=== PATIENT | female | born 1995 | race Two or more races ===

== ENCOUNTER 2022-07-09 14:44 | Emergency (ER) | payer OTHER ==
[~2022-07-09] VITALS: Ht 157.5 cm; Wt 71.2 kg
[2022-07-09] MEDS ORDERED: SYNTHROID112 MCG PO (14:53)
== END 2022-07-09 18:04 | disposition home or self-care (01) ==
LOC: ER 14:44
DX: R51.9 Headache, unspecified (principal)

== ENCOUNTER 2023-01-24 12:16 | Inpatient (IN) | payer OTHER ==
[~2023-01-24] VITALS: Ht 157.5 cm; Wt 82.1 kg
[~2023-01-24 12:16] MED LIST: SYNTHROID112 MCG PO
[2023-01-24] MEDS ORDERED: SYNTHROID125 MCG PO (14:19)
[2023-01-24] MEDS ORDERED: PRENATAL CAPLE1 EAC1 PO (14:20)
[2023-01-24] MEDS ORDERED: INTEGRA F CAPS1 EACH PO (14:21)
== END 2023-01-25 09:41 | disposition home or self-care (01) | DRG 833 ==
LOC: LDR 12:16 → OB/GYN 17:18
PROVIDERS: ADMIT Obstetrics & Gynecology Gynecology; ATTEND Obstetrics & Gynecology Gynecology
PROC: 4A1HXCZ Monitoring of Products of Conception, Cardiac Rate, External Approach (ICD-10-PCS; principal; 2023-01-24)
DX: O26.893 Other specified pregnancy related conditions, third trimester (principal); R51.9 Headache, unspecified; R42 Dizziness and giddiness; Z3A.36 36 weeks gestation of pregnancy; Z20.822 Contact with and (suspected) exposure to COVID-19

== ENCOUNTER 2023-02-10 14:34 | Outpatient (CLI) | payer OTHER ==
[~2023-02-10 14:34] MED LIST changes: +INTEGRA F CAPS1 EACH PO; +PRENATAL CAPLE1 EAC1 PO; +SYNTHROID125 MCG PO
== END 2023-02-10 14:50 | disposition home or self-care (01) ==
LOC: NST 14:34
PROVIDERS: ATTEND Obstetrics & Gynecology
DX: Z34.83 Encounter for supervision of other normal pregnancy, third trimester (principal)

== ENCOUNTER 2023-02-12 14:37 | Inpatient (IN) | payer OTHER ==
[~2023-02-12] VITALS: Ht 157.5 cm; Wt 82.1 kg
== END 2023-03-03 11:47 | disposition home or self-care (01) | DRG 807 ==
LOC: OB/GYN → LDR 03-01 07:32 → OB/GYN 03-01 17:27
PROVIDERS: ADMIT Obstetrics & Gynecology Maternal & Fetal Medicine; ATTEND Obstetrics & Gynecology Maternal & Fetal Medicine
PROC: 10E0XZZ Delivery of Products of Conception, External Approach (ICD-10-PCS; principal; 2023-03-01)
PROC: 0HQ9XZZ Repair Perineum Skin, External Approach (ICD-10-PCS; 2023-03-01)
PROC: 4A1HXCZ Monitoring of Products of Conception, Cardiac Rate, External Approach (ICD-10-PCS; 2023-03-01)
DX: O70.0 First degree perineal laceration during delivery (principal); Z37.0 Single live birth; Z3A.39 39 weeks gestation of pregnancy; Z20.822 Contact with and (suspected) exposure to COVID-19